=== PATIENT | male | born 1965 | race Caucasian/White ===

== ENCOUNTER 2020-04-29 08:36 | Emergency (ER) | payer OTHER, SELFPAY ==
--- NOTE | ~2020-04-29 | XR_ITS ---
EXAMINATION: XR chest 2V DATE: 04/29/2020 09:12 INDICATION: Midsternal chest pain. TECHNIQUE: Frontal and lateral views of the chest were obtained. COMPARISON: Chest 2 views 10/11/2014 FINDINGS: There is mild scarring at the lung apices. No pleural effusion or pneumothorax. The heart s ize is normal. IMPRESSION: 1. Mild scarring at the lung apices. Reviewed, dictated and finalized at location A. RVISORY HISTORIAN
[2020-04-29 08:40] VITALS: BP 164/64; PULSE 62; RESP 16; TEMP 37.2; O2SAT 98
--- NOTE | 2020-04-29 08:50 | ED.CHESTPAIN ---
HPI - Chest Pain General Chief Complaint: Chest Pain Stated Complaint: feels like something is stuck in chest area Time Seen by Provider: 04/29/20 08:50 Source: patient and RN notes reviewed History of Present Illness HPI narrative: Patient is a 54-year-old male who presents the urgent care with complaints of midsternal chest pain. Patient states that it started last night. Patient states that he noticed that when he was laying down and when he sat up it seemed to be better. Patient states that it does seem to exacerbate with minimal exercise/activity. States most of the pain is with deep breathing. 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 Denies any recent heavy lifting, pushing, and pulling. States that it started on the right and is now been midsternal pains. Patient denies of any nausea or shortness of breath at rest. Denies of any radiation of the pain through to the back, down the arm, jaw or neck. Denies of any history of cardiac events or blood clots. States that recently his doctor put him on a low-dose aspirin for thick blood . Patient is currently stable and in no acute distress at this time. No other acute complaints. Patient aware of the plan of care. Some parts of this dictation were generated by voice recognition software and may contain typographical and/or grammatical inaccuracies. Related Data Home Medications Medication Instructions Recorded Confirmed cholecalciferol (vitamin D3) 125 mcg PO DAILY 04/05/20 04/05/20 [Vitamin D3] docosahexaenoic acid-epa [Fish Oil 1 cap PO DAILY 04/05/20 04/05/20 (with DHA-EPA)] [id number] 149-hyal ac 2 tablet PO DAILY 04/05/20 04/05/20 [Glucos Chond Cplx Advanced] lisinopril 40 mg PO DAILY 04/05/20 04/05/20 naproxen sodium [Aleve] 220 mg PO BID 04/05/20 04/05/20 nebivolol [Bystolic] 10 mg PO DAILY 04/05/20 04/05/20 turmeric root extract 500 mg PO BID 04/05/20 04/05/20 vitamin B complex [B Complex] 2 cap PO DAILY 04/05/20 04/05/20 zinc lozenges 23 mg PO DAILY 04/05/20 04/05/20 Allergies Allergy/AdvReac Type Severity Reaction Status Date / Time Penicillins Allergy Unknown HIVES Verified 04/05/20 13:04 Obyygyv-Rzs-Brk Reductase AdvReac Verified 04/05/20 13:06 Inhibitor Review of Systems Review of Systems: Narrative: CONSTITUTIONAL: Denies fever, chills, or sweats. EYES: Denies visual changes, redness, or discharge. ENT: Denies rhinorrhea, congestion, sore throat, or otalgia. CARDIOVASCULAR: Reports of midsternal chest pain with deep breathing RESPIRATORY: Denies cough or dyspnea. GASTROINTESTINAL: Denies abdominal pain, nausea, vomiting, or diarrhea. GENITOURINARY: Denies dysuria or hematuria. SKIN: Denies rash or itching. MUSCULOSKELETAL: Denies back pain, joint pain, or myalgia. NEUROLOGIC: Denies headache, numbness, or weakness. All other systems reviewed are negative, except as documented in HPI. PMFSH Social History Social History Smoking packs per day: 1 Smoking cigarettes per day: 20.0 Years smoked: 10 Smoking pack-years: 10.00 Smoking status: Former smoker Tobacco type: cigarettes Smoking end date: 05/12/90 Gender identity (if verbalized by the patient): Male Spiritual care concerns: No Comments At the time of my signature, I reviewed and agree with the nursing past medical, surgical, social, and family history. There is no relevant family history pertinent to the patient complaint. Exam Narrative: Exam Narrative: GENERAL: This is a well-nourished, well-developed patient, in no apparent distress. HEAD: normocephalic, atraumatic. EYES: PERRL. Sclera clear/white. Vision is grossly intact. EARS: External ears normal NOSE: External nose normal with no obvious nasal discharge, nares without redness, no rhinorrhea. THROAT: Mucous membranes moist NECK: Neck supple CARDIOVASCULAR: Regular rate and rhythm. Nonreproducible midsternal chest pain. RESPIRATORY: Clear to auscu
--- NOTE | 2020-04-29 08:52 | ECG_ITS ---
Measurements Intervals [place] Rate: 67 P: 60 MD: 116 QRS: -15 QRSD: 95 T: 29 QT: 364 QTc: 386 Interpretive Statements SINUS RHYTHM WITH SINUS ARRHYTHMIA WITH SHORT MD INTERVAL POSSIBLE LEFT ATRIAL ENLARGEMENT POSSIBLE LEFT VENTRICULAR HYPERTROPHY MINIMAL Q WAVES- HIGH LATERAL LEADS BORDERLINE ECG Electronically Signed On 04-29-2020 16:52:45 LINE SERVER by Lars Hernandez D.O.
== END 2020-04-29 09:38 | disposition short-term general hospital (02) ==
PROVIDERS: Emergency Provider Nurse Practitioner Family
DX: R07.9 Chest pain, unspecified (principal); Z87.891 Personal history of nicotine dependence; E78.00 Pure hypercholesterolemia, unspecified; I10 Essential (primary) hypertension
CPT/HCPCS: 71046; 93005; 99213; G0463

== ENCOUNTER 2020-04-29 10:08 | Emergency (ER) | payer OTHER, SELFPAY ==
[2020-04-29] VITALS (23 sets, daily range): BP systolic 121–171; BP diastolic 57–83; PULSE 59–85; RESP 11–26; TEMP 37; O2SAT 93–100
--- NOTE | ~2020-04-29 | XR_ITS ---
EXAMINATION: XR chest 2V DATE: 04/29/2020 10:36 INDICATION: Chest pain. TECHNIQUE: Frontal and lateral views of the chest were obtained. COMPARISON: Chest 2 views at 9:09 AM FINDINGS: There is mild scarring at the lung apices. No pleural effusion or pneumothorax. The heart s ize is normal. IMPRESSION: 1. Mild scarring at the lung apices. Reviewed, dictated and finalized at location A. R CONTROL OPERATOR
--- NOTE | ~2020-04-29 | CT_ITS ---
EXAMINATION: CTA chest EXAM DATE: 04/29/2020 14:25 INDICATION: Right-sided chest pain. TECHNIQUE: Spiral CTA of the chest/aorta was performed with 100 cc Omnipaque 350 intravenous contras t injection. Images were acquired during the pulmonary arterial phase. Maximum intensity projection 3-D reconstructions of the aorta were created by the technologist on dedicated workstation. Sam l maximum intensity projection 3D-reconstructions were created by the technologist on dedicated works tation. Axial, coronal and sagittal reformatted images were reviewed. The dose-length product (DLP) for this examination was 604.85 mGy-cm. The exposure was tailored according to patient size (auto mA exposure control), and iterative reconstruction (ASIR) was used as additional dose reduction techn ique. Correlation is made to Chest x-ray earlier same date. FINDINGS: Thoracic aorta is normal in caliber and without dissection or arteriosclerotic disease. No evidence of pulmonary embolism. No thoracic aortic dissection. Some dependent groundglass opacity consistent with atelectasis. There are no pleural or pericardial effusions. Tracheobronchial tree is patent. There is no mediastinal, hilar or axillary lymphadenopathy. There is no pneumothorax. Heart normal in size. No evidence of coronary arterial calcification. Upper abdomen is unremarka ble. There is mild thoracic spondylosis without osteoblastic or osteolytic lesions identified. IMPRESSION: 1. Unremarkable aorta and pulmonary arteries. 2. Mild dependent atelectasis. Reviewed, dictated and finalized at location A. R LEGAL ADVISOR
--- NOTE | ~2020-04-29 | US_ITS ---
EXAMINATION: US abdomen limited DATE: 04/29/2020 11:11 INDICATION: Epigastric abdominal pain. TECHNIQUE: Multiple grayscale and Doppler ultrasound images of the abdomen were obtained. COMPARISON: None FINDINGS: The visualized portions of the head of the pancreas are normal. The liver is normal without focal lesion. There is normal flow in main portal vein. The gallbladder is normal in size. No gallst ones or gallbladder wall thickening. There was no sonographic Staley sign. The common duct is normal and measures 6 mm. IMPRESSION: 1. Normal right upper quadrant ultrasound. Reviewed, dictated and finalized at location A. T SUPERVISOR RN
--- NOTE | 2020-04-29 10:12 | ECG_ITS ---
Measurements Intervals [place] Rate: 71 P: 59 FL: 125 QRS: -17 QRSD: 102 T: 18 QT: 361 QTc: 393 Interpretive Statements SINUS RHYTHM POSSIBLE LEFT ATRIAL ENLARGEMENT RSR' IN V1 OR V2, CONSIDER RIGHT VENTRICULAR HYPERTROPHY OR RIGHT VCD POSSIBLE LEFT VENTRICULAR HYPERTROPHY MINIMAL Q WAVES- HIGH LATERAL LEADS BORDERLINE ECG Electronically Signed On 04-29-2020 10:18:24 HEALTH SAFETY SPECIALIST by Lars Hernandez D.O.
[2020-04-29] MEDS: ASPIRIN 81 MG CHEWABLE TABLET 324 MG PO (10:27)
[2020-04-29 10:28] LABS: Basophils Absolute Auto 0.1 K/mm3 (0.0-0.1); Basophils Percent Auto 0.3 % (0.2-1.2); Eosinophils Absolute Auto 0.1 K/mm3 (0-0.3); Eosinophils Percent Auto 0.5 % (0-4.4); Hematocrit 50.1 % (42.0-52.0); Hemoglobin 17.3 g/dL (14.0-18.0); Immature Granulocyte Absolute 0.09 K/mm3 (0.00-0.031); Immature Granulocyte Percent A 0.5 % (0-0.5); Lymphocytes Absolute Auto 1.05 K/mm3 (0.9-3.2); Lymphocytes Percent Auto 5.7 % (18.3-44.2); Mean Corpuscular HGB Conc 34.5 g/dl (32-36); Mean Corpuscular Hemoglobin 30.3 pg (26-34); Mean Corpuscular Volume 87.7 fl (80-100); Mean Platelet Volume 10.1 fl (7.4-10.4); Monocytes Absolute Auto 1.7 K/mm3 (0.1-0.6); Monocytes Percent Auto 9.1 % (2.6-8.5); Neutrophils Absolute Auto 15.4 K/mm3 (1.3-6.7); Neutrophils Percent Auto 83.9 % (45.5-73.1); Platelet Count Result 289 k/mm3 (150-375); Red Blood Count 5.71 M/mm3 (4.6-6.20); Red Cell Distribution Width 13.4 % (11.5-14.5); White Blood Count 18.4 K/mm3 (4.5-10.0)
[2020-04-29 10:37] LABS: INR 0.9; Partial Thromboplastin Time 29.1 SECONDS (22.3-36.8); Prothrombin Time 12.8 Seconds (11.1-14.7)
[2020-04-29 10:41] LABS: Anion Gap 6 mmol/L (8-16); Blood Urea Nitrogen 23 mg/dL (9-20); Calcium 9.6 mg/dL (8.4-10.2); Carbon Dioxide 27 mmol/L (22-30); Chloride 103 mmol/L (98-107); Estimated CRCL calculation 83 ml/min; Estimated Glomerular Filt Rate > 60; Glucose 130 mg/dL (75-110); Sodium 136 mmol/L (137-145)
--- NOTE | 2020-04-29 10:48 | ED.CHESTPAIN ---
HPI - Chest Pain General Chief Complaint: Chest Pain Stated Complaint: CHEST PAIN Time Seen by Provider: 04/29/20 10:40 Source: patient Mode of arrival: ambulatory Limitations: no limitations History of Present Illness HPI narrative: This patient is a 54 year old male who presents for evaluation of midsternal chest pain. Starting at 130 am he developed right lower chest pain and he states it radiates to his midsternum. His pain is worse with inspiration. He denies associated sob, nausea, vomiting, fever, chills. He describes feeling like he something is stuck. He took pepcid and prilosec without relief. He feels like he has to belch. Related Data Home Medications Medication Instructions Recorded Confirmed cholecalciferol (vitamin D3) 125 mcg PO DAILY 04/05/20 04/29/20 [Vitamin D3] docosahexaenoic acid-epa [Fish Oil 1 cap PO DAILY 04/05/20 04/29/20 (with DHA-EPA)] [id number]-pzwqf-xap 149-hyal ac 2 tablet PO DAILY 04/05/20 04/29/20 [Glucos Chond Cplx Advanced] lisinopril 40 mg PO DAILY 04/05/20 04/29/20 naproxen sodium [Aleve] 220 mg PO DAILY 04/05/20 04/29/20 nebivolol [Bystolic] 10 mg PO DAILY 04/05/20 04/29/20 turmeric root extract 500 mg PO BID 04/05/20 04/29/20 vitamin B complex [B Complex] 2 cap PO DAILY 04/05/20 04/29/20 zinc lozenges 23 mg PO DAILY 04/05/20 04/29/20 Allergies Allergy/AdvReac Type Severity Reaction Status Date / Time Penicillins Allergy Unknown HIVES Verified 04/29/20 10:22 [place]ut-Gai-Ebs Reductase AdvReac Other Verified 04/29/20 10:21 Inhibitor Review of Systems Review of Systems: All systems reviewed & are unremarkable except as noted in HPI and below Constitutional: Constitutional: Denies chills and Denies fever(s) ENT: Denies nasal congestion Cardiovascular: Cardiovascular: Reports chest pain, Denies rapid heart rate and Denies radiating jaw, neck or arm pain Respiratory: Respiratory: Denies cough and Denies dyspnea Gastrointestinal: Gastrointestinal: Denies abdominal pain and Denies nausea PMFSH Past Medical History Medical History (Updated 04/29/20 @ 16:20 by Ruthy Bear MD) Hypertension Surgical History Surgical History (Updated 04/29/20 @ 10:50 by Ruthy Bear MD) S/P foot surgery, right Social History Social History Smoking packs per day: 1 Smoking cigarettes per day: 20.0 Years smoked: 10 Smoking pack-years: 10.00 Smoking status: Former smoker Tobacco type: cigarettes Smoking end date: 05/12/90 Gender identity (if verbalized by the patient): Male Spiritual care concerns: No Exam Const: General: no acute distress and alert Orientation/consciousness: patient oriented x3 HENMT: Head: normocephalic and atraumatic Face and sinus: face symmetric Mouth: Yes Normal oral and palatal mucosa present and Yes oropharynx normal Eyes: EOM: EOMs intact bilaterally Chest: Chest palpation & inspection: tenderness Resp: Effort & Inspection: normal respiratory effort, no retractions and no use of accessory muscles Auscultation: clear to auscultation bilaterally Cardio: Rate: regular rate Rhythm: regular rhythm Heart sounds: no murmurs GI: GI Palp: Yes Soft to palpation, No Tenderness to palpation present (GI), No Guarding due to palpation present (GI) and No Rigid due to palpation Auscultation: normal bowel sounds Back/Spine/Pelvis: Back: no CVA tenderness Skin: General skin exam: normal color Rashes: no rashes Neuro: General: patient oriented x3, moves all extremities and CN's II-XI intact bilaterally Extrem: General: normal to inspection Psych: Mental Status: mental status grossly normal Affect: normal affect Course Reevaluation(s) Reevaluation #1: I discussed with patient CT and labs unremarkable other than elevated wbc. No pericardial effusion on bedside ultrasound. No aortic dissection and his pain sounds pleuritic. He has no abdominal pain tenderness to suggest abdominal etiology. Date:
[2020-04-29 10:53] LABS: Troponin I < 0.012 ng/mL (0.000-0.034)
[2020-04-29] MEDS: MORPHINE SULFATE (*CRX) 4 MG/ML INJ IV PUSH (10:53)
[2020-04-29] MEDS: ONDANSETRON INJ 4 MG/2 ML VIAL IV PUSH (10:54)
[2020-04-29 11:02] LABS: Alanine Aminotransferase 50 U/L (4-50); Albumin Level 4.3 g/dL (3.5-5.1); Alkaline Phosphatase 105 U/L (38-126); Aspartate Amino Transferase 48 U/L (17-59); Lipase 46 U/L (23-300)
[2020-04-29 12:28] LABS: Add Urine Microscopic? NO; Appearance Urine Clear (Clear); Bilirubin Urine Negative (Negative); Blood Urine Negative (Negative); Color Urine Straw (Yellow); Glucose Urine UA Negative (Negative); Ketones Urine Negative (Negative); Leukocyte Esterase Ur Negative LEU/UL (Negative); Nitrate Urine Negative (Negative); Protein Urine Negative (Negative); Specific Grav Ur 1.011 (1.001-1.035); Urobilinogen Urine Negative mg/dL (<2.0)
[2020-04-29] MEDS: diazePAM INJ (*CRX) 10 MG/2 ML SYRINGE 5 MG IV PUSH ×2 (13:12→13:52)
--- NOTE | 2020-04-29 13:56 | PC.NURSE ---
given another dose of valium so that he can get ct chest. vitals remain stable
[2020-04-29 13:59] LABS: Troponin I < 0.012 ng/mL (0.000-0.034)
[2020-04-29] MEDS: KETOROLAC 30 MG/ML VIAL (*BKC) IV PUSH (15:13)
== END 2020-04-29 16:45 | disposition home or self-care (01) ==
PROVIDERS: Emergency Provider General Practice; PCP Nurse Practitioner Family
DX: R07.89 Other chest pain (principal); I10 Essential (primary) hypertension; Z87.891 Personal history of nicotine dependence; R94.31 Abnormal electrocardiogram [ECG] [EKG]
CPT/HCPCS: 36415; 71046; 71275; 76705; 80048; 80076; 81003; 83690; 84484; 85025; 85380; 85610; 85730; 93005; 96374; 96375; 96376; 99284; A9270; J1885; J2270; J2405; J3360; Q9967

== ENCOUNTER 2020-08-15 15:46 | Outpatient (CLI) | payer OTHER, SELFPAY ==
--- NOTE | ~2020-08-15 | XR_ITS ---
EXAMINATION:XR cervical spine 4-5V DATE: 08/15/2020 16:13 INDICATION: Neck pain TECHNIQUE: AP, lateral, lateral swimmers and odontoid views of the cervical spine are provided. COMPARISON: 12/17/2016 FINDINGS: Alignment is normal. The odontoid is intact. No fracture is identified. There is unchanged severe loss of intervertebral disc space height at C4-5 and moderate loss of intervertebral disc spac e height at C3-4 and C5-6. The vertebral body heights are maintained. Degenerative osteophytes projec t from the anterior endplates of multiple vertebral bodies. There is severe uncovertebral joint osteo arthritis at C4-5. Prevertebral soft tissues are normal. IMPRESSION: 1. Moderate to severe cervical spondylosis without acute findings or significant interval change. Reviewed, dictated and finalized at location A. IMPRESSION: 1. Moderate to severe cervical spondylosis without acute findings or significan t interval change.
--- NOTE | ~2020-08-15 | XR_ITS ---
EXAMINATION: XR thoracic spine 3V DATE: 08/15/2020 16:13 INDICATION: Upper back pain TECHNIQUE: AP, lateral and lateral swimmer's views of the thoracic spine were obtained. COMPARISON: CT, 04/29/2020 FINDINGS: There is unchanged mild anterior wedging of several thoracic vertebral bodies. No acute fin dings are evident. Bone alignment is normal. There is mild loss of intervertebral disc space height a t multiple levels in the thoracic spine. IMPRESSION: 1. No acute osseous abnormality. Reviewed, dictated and finalized at location A.
== END 2020-08-15 15:47 | disposition home or self-care (01) ==
LOC: ANHIMG 15:51
PROVIDERS: PCP Nurse Practitioner Family; Visit Provider Nurse Practitioner Family
DX: M47.892 Other spondylosis, cervical region (principal)
CPT/HCPCS: 72050; 72072

== ENCOUNTER 2024-01-13 11:48 | Emergency (ER) | payer OTHER, SELFPAY ==
--- NOTE | ~2024-01-13 | XR_ITS ---
XR hip RT min 2V 01/13/2024 13:31 Indication: Right hip Procedure: 2 views right hip Comparison: No prior studies for comparison. Findings: No fracture, subluxation or dislocation. Mild osteoarthritis of the right hip. Sacral polly en are symmetric. Impression: 1: No acute fracture. Reviewed, dictated and finalized at location B. Impression: 1: No acute fracture.
[2024-01-13 12:28] VITALS: BP 142/64; PULSE 64; RESP 18; TEMP 36.7; O2SAT 100
--- NOTE | 2024-01-13 13:08 | ED.BACK ---
HPI - Back Pain/Injury General Chief Complaint: Back Pain/Injury Stated Complaint: severe lower back/hip pain Time Seen by Provider: 01/13/24 13:09 Source: patient, RN notes reviewed and old records reviewed Mode of arrival: ambulatory Limitations: no limitations History of Present Illness HPI Narrative: 58-year-old male presents to the [facility] with complaints of lower back and hip pain for 2-3 weeks. Denies any injury. States that he has been taking leftover Flexeril from about a year ago. Onset (ago): week(s) (2-3) Related Data Home Medications Medication Instructions Recorded Confirmed amlodipine 5 mg tablet mg 01/13/24 lisinopril 40 mg tablet mg 01/13/24 Allergies Allergy/AdvReac Type Severity Reaction Status Date / Time Penicillins Allergy Unknown HIVES Verified 01/13/24 12:48 Fzagmku-CHL-TrB Reductase AdvReac Other Verified 01/13/24 12:48 Inhibitor [Oaxxilh-Wps-Cec Reductase Inhibitor] Review of Systems Review of Systems: All systems reviewed & are unremarkable except as noted in HPI and below Constitutional: Constitutional: Reports no additional constitutional complaints Eyes: Eyes: Reports no additional eye complaints ENT: Reports system reviewed and no additional complaints, except as documented Cardiovascular: Cardiovascular: Reports no additional cardiovascular complaints, Denies chest pain and Denies dyspnea Respiratory: Respiratory: Reports no additional respiratory complaints, Denies chest congestion, Denies cough and Denies dyspnea Gastrointestinal: Gastrointestinal: Reports no additional gastrointestinal complaints, Denies abdominal pain, Denies nausea and Denies vomiting Musculoskeletal: Musculoskeletal: Reports as per HPI Integumentary/Breasts: Skin/Breast: Reports system reviewed and no additional complaints, except as docu Neurologic: Reports system reviewed and no additional complaints, except as documented Psychiatric: Psychiatric: Reports no additional psychiatric complaints Allergic/Immunologic: Allergic/Immunologic: Reports no additional allergic/immunologic complaints [facility] Past Medical History Medical History Hypertension Surgical History Surgical History S/P foot surgery, right Social History Social History Smoking packs per day: 1 Smoking cigarettes per day: 20.0 Years smoked: 10 Smoking pack-years: 10.00 Smoking status: Former smoker Tobacco type: cigarettes Smoking end date: 05/12/90 Gender identity (if verbalized by the patient): Male Spiritual care concerns: No Comments At the time of my signature, I reviewed and agree with the nursing past medical, surgical, social, and family history. There is no relevant family history pertinent to the patient complaint. Exam Const: General: cooperative, healthy appearing, comfortable, no acute distress, well developed, alert and well nourished Nutritional Appearance: well nourished Orientation/consciousness: patient oriented x3 Limitations: no limitations HENMT: Head: normal to inspection Ears: hearing grossly normal bilaterally and external ears normal Face/Nose/Sinus: Normal external nose present, Normal nares present, Normal nasal mucous membranes and turbinates present, normal facial exam and face symmetric Face and sinus: normal facial exam and face symmetric Eyes: General: appearance normal, both eyes and all related structures Alignment and Position: alignment normal Periorbital: periorbital findings normal Neck: Neck: normal visual inspection, full ROM, no lymphadenopathy and no meningeal signs Chest: Chest palpation & inspection: normal inspection of the chest Resp: Effort & Inspection: normal respiratory effort and able to speak in complete sentences Cardio: Rate: regular rate Back/Spine/Pelvis: Thor
== END 2024-01-13 14:05 | disposition home or self-care (01) ==
PROVIDERS: Emergency Provider Nurse Practitioner
DX: M25.551 Pain in right hip (principal); Z87.891 Personal history of nicotine dependence; I10 Essential (primary) hypertension
CPT/HCPCS: 73502; 99213; G0463